=== PATIENT | female | born 1990 | race Caucasian/White ===

== ENCOUNTER 2018-10-23 08:54 | Emergency (ER) | payer OTHER ==
--- NOTE | 2018-10-23 09:55 | RAD ---
TWO VIEW CHEST: Indication: Cough. Comparison: None. FINDINGS: There is no evidence of lobar consolidation, effusion, or pneumothorax. Cardiac silhouette is normal in size. Osseous structures are intact. IMPRESSION: No focal consolidation. POS: [facility]
== END 2018-10-23 09:42 | disposition home or self-care (01) ==
LOC: ERS 08:54
DX: J20.9 Acute bronchitis, unspecified (principal)
CPT/HCPCS: 71046